=== PATIENT | male | born 2000 | race Caucasian/White ===

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

== ENCOUNTER 2019-02-02 17:16 | Emergency (ER) | payer MEDICAID ==
[2019-02-02 17:34] VITALS: O2SAT 96
[2019-02-02] MEDS ORDERED: Tylenol #3 Tablet PO ONE (17:51)
[2019-02-02] MEDS ORDERED: Tylenol #3 Tablet ONE (18:04)
[2019-02-02 18:35] VITALS: BP 134/83; PULSE 85
--- NOTE | 2019-02-02 18:41 | ERPHSYRPT ---
- History of Present Illness Time Seen by Provider: 02/02/19 17:35 Source: patient Exam Limitations: clinical condition Patient Subjective Stated Complaint: headache since 0010 today. states is intermittent and sometimes sharp. also had vomiting at 0010 today. states had [employer] at 1400 today. no further vomiting. Triage Nursing Assessment: ambulated to room per self. skin w/d, color normal, resp easy. states pain is barely a "1" at this time but does occasionally get worse. haley. a/o times three. Physician History: PATIENT WITH A HISTORY OF HEADACHES FOR 5-7 YEARS, 3-4 TIMES MONTHLY, ONSET OF 1AM TODAY ASSOCIATED WITH EMESIS EARLIER TODAY. HAS ASSOCIATED PHOTOPHOBIA. DENIES BLURRED VISION, FEVER, NECK STIFFNESS. RATES GENERALIZED HEADACHE PAIN SCALE 1-2/10. Timing/Duration: today Quality: throbbing Head Pain Location: global Severity of Pain-Max: moderate Severity of Pain-Current: mild Recent Head Trauma: frequent headaches, chronic headaches Modifying Factors: Improves With: exposure to light Associated Symptoms: nausea/vomiting (EARLIER TODAY) Previous symptoms: same symptoms as today Allergies/Adverse Reactions: No Known Drug Allergies Allergy (Verified 02/02/19 17:34) Hx Tetanus, Diphtheria Vaccination/Date Given: Yes Hx Influenza Vaccination/Date Given: Yes Hx Pneumococcal Vaccination/Date Given: No - Review of Systems Constitutional: No Fever, No Chills Eyes: No Symptoms Ears, Nose, & Throat: No Symptoms Respiratory: No Symptoms, No Cough, No Dyspnea Cardiac: No Chest Pain, No Edema, No Syncope Abdominal/Gastrointestinal: Nausea, Vomiting, No Abdominal Pain, No Diarrhea Genitourinary Symptoms: No Dysuria Musculoskeletal: No Back Pain, No Neck Pain Skin: No Rash Neurological: No Dizziness, No Focal Weakness, No Sensory Changes Psychological: No Symptoms Endocrine: No Symptoms All Other Systems: Reviewed and Negative - Past Medical History Pertinent Past Medical History: Yes Neurological History: No Pertinent History, Migraines ENT History: No Pertinent History Cardiac History: No Pertinent History Respiratory History: No Pertinent History Endocrine Medical History: No Pertinent History Musculoskeletal History: No Pertinent History GI Medical History: No Pertinent History History: No Pertinent History Psycho-Social History: No Pertinent History Male Reproductive Disorders: No Pertinent History Other Medical History: allergies - Past Surgical History Past Surgical History: Yes Neuro Surgical History: No Pertinent History Cardiac: No Pertinent History Respiratory: No Pertinent History Gastrointestinal: No Pertinent History Genitourinary: No Pertinent History Musculoskeletal: No Pertinent History Other Surgical History: cyst from mouth - Social History Smoking Status: Never smoker Exposure to second hand smoke: Yes Drug Use: none Patient Lives Alone: No - Nursing Vital Signs Nursing Vital Signs: Initial Vital Signs Temperature 98.6 F 02/02/19 17:24 Pulse Rate 83 02/02/19 17:24 Respiratory Rate 16 02/02/19 17:24 Blood Pressure 125/81 02/02/19 17:24 O2 Sat by Pulse Oximetry 96 02/02/19 17:24 Pain Scale Pain Intensity 5 - Physical Exam General Appearance: no apparent distress Eye Exam: PERRL/EOMI Ears, Nose, Throat Exam: normal ENT inspection, moist mucous membranes Neck Exam: normal inspection, supple, full range of motion, No meningismus Respiratory Exam: normal breath sounds, lungs clear Cardiovascular Exam: regular rate/rhythm, normal heart sounds Gastrointestinal/Abdominal Exam: soft, No tenderness, No distention Back Exam: normal inspection, normal range of motion Mental Status Exam: alert, oriented x 3, cooperative criminal justice faculty Exam: normal speech, PERRL, No facial droop Coordination/Gait Exam: normal cerebellar function Motor/Sensory Exam: no motor deficit, no sensory deficit DTR Exam: bicep (R): 2+, bicep (L): 2+, tricep (R): 2+, tricep (L): 2+, knee (R) : 2+, knee (L): 2+, ankle (R): 2+, ankle (L): 2+ Skin Exam: normal color, warm, dry, No rash SpO2 Interpretation: normal SpO2: 96 - CT Exams Head CT Interpretation: Tele-radiologist Report, No/Intracranial Hemorrhag Ordered Tests: Active Orders 24 hr Category Date Time Status HEAD WITHOUT CONTRAST [CT] Stat Exams 02/02/19 17:52 Taken Medication Summary Discontinued Medications Generic Name Dose Route Start Last Admin Trade Name Ric PRN Reason Stop Dose Admin Acetaminophen/Codeine Phosphate 1 tab 02/02/19 17:51 02/02/19 18:04 Tylenol #3 Tablet PO 02/02/19 17:52 1 tab STAT ONE Administration Acetaminophen/Codeine Phosphate Confirm 02/02/19 18:04 Tylenol #3 Tablet Administered 02/02/19 18:05 Dose 1 tab .ROUTE .[facility] ONE - Progress Progress Note: 02/02/19 18:35 ADMINISTERED TYLENOL #3 ORALLY - Departure Departure Disposition: Home Clinical Impression: ACUTE CEPHALGIA Condition: Stable Critical Care Time: No Referrals: MORGAN ORELLANA [Primary Care Provider] - Additional Instructions: BEGIN TORADOL 10MG EVERY 6 HOURS FOR PAIN NEEDED. ZOFRAN 4MG EVERY 6 HOURS FOR NAUSEA OR VOMITING. CONSULT YOUR PRIMARY CARE PROVIDER FOR FOLLOWUP. RETURN TO EMERGENCY ROOM FOR PERSISTENT SYMPTOMS. Prescriptions: Ketorolac Tromethamine [Toradol] 10 mg PO Q6HPRN PRN #20 tablet PRN Reason: Pain Ondansetron ODT 4 MG [Zofran Odt 4 mg] 4 mg PO Q6H PRN PRN #10 tab.rapdis PRN Reason: Nausea
--- NOTE | 2019-02-02 23:04 | XRAY ---
Indication: Headache. No known injury. Multiple contiguous axial images obtained through the head without contrast. Comparison: None Normal appearing brain parenchyma, ventricles, and bony calvarium. Visualized paranasal sinuses and mastoid air cells are clear. Impression: Normal CT head without contrast exam. Comment: Preliminary interpretation was made by [facility]. No discrepancy. CTDI 52.42
== END 2019-02-02 18:45 | disposition home or self-care (01) ==
LOC: ED 17:16
DX: R51 Headache (principal)
CPT/HCPCS: 70450; 99283; A9270-GY

== ENCOUNTER 2019-08-09 08:33 | Day surgery (SDC) | payer OTHER ==
--- NOTE | 2019-08-09 07:43 | HP ---
DATE OF SURGERY: 08/09/2019 ANTICIPATED PROCEDURE: Laparoscopic cholecystectomy. HISTORY OF PRESENT ILLNESS: The patient has symptomatic cholelithiasis, seen and examined. Procedure discussed in detail and wished to proceed. PAST MEDICAL HISTORY: ALLERGIES: NONE. MEDICATIONS: Omeprazole, Singulair, Cetirizine, Nasonex. PAST SURGICAL HISTORY: None. SOCIAL HISTORY: Negative. FAMILY HISTORY: Negative. REVIEW OF SYSTEMS: CVS: Negative. PULMONARY: Negative. PHYSICAL EXAMINATION: VITAL SIGNS: Normal. CHEST: Clear. COR: Regular. ABDOMEN: Satisfactory. IMPRESSION: Symptomatic cholelithiasis. PLAN: Laparoscopic cholecystectomy.
[~2019-08-09 08:33] MED LIST: Lactated Ringers 1,000 ML IV ONE; Lactated Ringers 1,000 ML IV SCH; MEFOXIN 2 GM PREMIX** 2 GM/50 ML ML IV ONE; MEFOXIN 2 GM PREMIX** 2 GM/50 ML ML IV SCH; Sensorcaine 0.25% 10 ML ONE
[2019-08-09] MEDS ORDERED: DIPRIVAN 200 MG/20 ML IV ONE (09:00)
[2019-08-09] MEDS ORDERED: Quelicin Fliptop 200 MG/10 ML ONE (09:00)
[2019-08-09] MEDS ORDERED: SUBLIMAZE 100 MCG/2 ML ONE ×2 (09:00→11:08)
[2019-08-09] MEDS ORDERED: Zemuron 100 MG/10 ML ONE (09:00)
[2019-08-09] MEDS ORDERED: TORAdol 30 mg Injection ONE (10:28)
[2019-08-09] MEDS ORDERED: Zofran 4 MG/2 ML VIAL ONE (10:28)
[2019-08-09] MEDS ORDERED: Decadron 4 MG INJ ONE (10:28)
[2019-08-09] MEDS ORDERED: BRIDION 200MG/2ML IV ONE (10:28)
[2019-08-09] MEDS ORDERED: DILAUDID 2 MG INJECTION ONE ×2 (11:01→11:16)
--- NOTE | 2019-08-09 11:11 | OP ---
SURGERY DATE/TIME: 08/09/2019 1020 PREOPERATIVE DIAGNOSIS: Symptomatic cholelithiasis. POSTOPERATIVE DIAGNOSIS: Symptomatic cholelithiasis. PROCEDURE: Laparoscopic cholecystectomy. SURGEON: Dr. Phelps. ANESTHESIA: General endotracheal. COMPLICATIONS: None. CONDITION: Stable. INDICATIONS: A patient with right upper quadrant pain, ultrasound positive, seen and examined. Procedure discussed in detail and wished to proceed. DESCRIPTION OF PROCEDURE AND FINDINGS: Taken to surgery. General anesthetic, routine prep and drape. Veress needle inserted right upper quadrant. Insufflating pressure 14. Four - 5's. Good visualization. Some inflammation. Cystic duct defined. Cystic artery defined. Cystic artery was small but cauterized, coagulated looked satisfactory. Cystic duct triply clipped. Posterior cystic artery higher up was clipped. Gallbladder rolled out of gallbladder fossa. The gallbladder delivered through the upper abdominal port. Hole closure device was used with 0 Vicryl. Field clean and dry. CO2 exsufflated. Skin closed with 4-0 Vicryl and Steri-Strips. The patient tolerated the procedure satisfactorily.
[2019-08-09 13:01] VITALS: O2SAT 98
[2019-08-09 13:20] VITALS: BP 132/84; PULSE 83
== END 2019-08-09 12:50 | disposition home or self-care (01) ==
LOC: SDC 08:33
PROVIDERS: ATTEND Surgery
DX: K80.20 Calculus of gallbladder without cholecystitis without obstruction (principal)
CPT/HCPCS: J0330; J0694; J1100; J1170; J1885; J2405; J2704; J3010

== ENCOUNTER 2019-09-06 10:39 | Emergency (ER) | payer OTHER ==
--- NOTE | 2019-09-06 10:56 | ERPHSYRPT ---
- History of Present Illness Time Seen by Provider: 09/06/19 10:45 Historian: patient, family Exam Limitations: no limitations Patient Subjective Stated Complaint: pt here for vomiting, he states he had gallbladder out a month ago for gall stones and he still is having bouts of vomiting. pt is a poor historian and wont give hx he lets hes family talk for him Triage Nursing Assessment: pt alert, resp easy, skin w/d/p. abd soft, he states abd pain from vomiting Physician History: 19 y/o white male with nkda, no meds, no marijuana or other illicit drug use, presents with chronic recurrent n/v despite cholecystectomy approx 1 month ago for cholelithiass. most recent episode began this am at 0500. not related to type of food ingested. no prior endoscopies. Timing/Duration: today Activities at Onset: none Quality: cramping (mild ruq) Severity of Pain-Max: mild Severity of Pain-Current: mild Modifying Factors: Improves With: vomiting Associated Symptoms: loss of appetite, nausea, vomiting, No diarrhea Previous symptoms: same symptoms as today Allergies/Adverse Reactions: trazodone Adverse Reaction (Severe, Verified 09/06/19 10:54) Headache Home Medications: Cetirizine HCl 10 mg PO DAILY 07/31/19 [History] Fluticasone Furoate [Flonase Sensimist] 5.9 ml NS DAILY PRN PRN 07/31/19 [ History] Montelukast Sodium 10 mg PO DAILY 07/31/19 [History] Omeprazole 20 mg PO DAILY 07/31/19 [History] Hx Tetanus, Diphtheria Vaccination/Date Given: No Hx Influenza Vaccination/Date Given: Yes Hx Pneumococcal Vaccination/Date Given: No Immunizations Up to Date: Yes - Review of Systems Constitutional: No Symptoms Eyes: No Symptoms Ears, Nose, & Throat: No Symptoms Respiratory: No Symptoms Cardiac: No Symptoms Abdominal/Gastrointestinal: Abdominal Pain, Nausea, Vomiting, No Diarrhea Genitourinary Symptoms: No Symptoms Musculoskeletal: No Symptoms Skin: No Symptoms Neurological: No Symptoms Psychological: No Symptoms Endocrine: No Symptoms Hematologic/Lymphatic: No Symptoms Immunological/Allergic: No Symptoms All Other Systems: Reviewed and Negative - Past Medical History Pertinent Past Medical History: Yes Neurological History: No Pertinent History, Migraines ENT History: No Pertinent History Cardiac History: No Pertinent History Respiratory History: No Pertinent History Endocrine Medical History: No Pertinent History Musculoskeletal History: No Pertinent History GI Medical History: No Pertinent History History: No Pertinent History Psycho-Social History: No Pertinent History Male Reproductive Disorders: No Pertinent History Other Medical History: allergies - Past Surgical History Past Surgical History: Yes Neuro Surgical History: No Pertinent History Cardiac: No Pertinent History Respiratory: No Pertinent History Gastrointestinal: No Pertinent History Genitourinary: No Pertinent History Musculoskeletal: No Pertinent History Other Surgical History: cyst from mouth - Social History Smoking Status: Never smoker Exposure to second hand smoke: No Drug Use: none Patient Lives Alone: No - Nursing Vital Signs Nursing Vital Signs: Initial Vital Signs Temperature 98.7 F 09/06/19 10:48 Pulse Rate 100 H 09/06/19 10:48 Respiratory Rate 18 09/06/19 10:48 Blood Pressure 112/83 09/06/19 10:48 O2 Sat by Pulse Oximetry 99 09/06/19 10:48 Pain Scale Pain Intensity 2 - Physical Exam General Appearance: mild distress, alert, anxiety Eye Exam: PERRL/EOMI Ears, Nose, Throat Exam: normal ENT inspection, moist mucous membranes Neck Exam: normal inspection, non-tender, supple, full range of motion Respiratory Exam: normal breath sounds, lungs clear, airway intact, No chest tenderness, No respiratory distress Cardiovascular Exam: regular rate/rhythm, normal heart sounds, normal peripheral pulses Gastrointestinal/Abdomen Exam: soft, normal bowel sounds, No tenderness Rectal Exam: not done Back Exam: normal inspection, normal range of motion, No CVA tenderness, No vertebral tenderness Extremity Exam: normal inspection, normal range of motion, pelvis stable Neurologic Exam: alert, oriented x 3, cooperative, training development specialist II-XII nml as tested, normal mood/affect, nml cerebellar function, nml station & gait Skin Exam: normal color, warm, dry Lymphatic Exam: No adenopathy SpO2 Interpretation: normal SpO2: 99 O2 Delivery: Room Air - Course Nursing assessment & vital signs reviewed: Yes Ordered Tests: Active Orders 24 hr Category Date Time Status IV Insertion STAT Care 09/06/19 10:58 Active AMYLASE Stat Lab 09/06/19 11:10 Completed CBC W DIFF Stat Lab 09/06/19 11:10 Completed CMP Stat Lab 09/06/19 11:10 Completed LIPASE Stat Lab 09/06/19 11:10 Completed UA W/RFX UR CULTURE Stat Lab 09/06/19 13:00 Completed Medication Summary Discontinued Medications Generic Name Dose Route Start Last Admin Trade Name Ric PRN Reason Stop Dose Admin Famotidine 40 mg 09/06/19 10:59 09/06/19 11:04 Pepcid 20 Mg Vial IV 09/06/19 11:00 40 mg STAT ONE Administration Famotidine Confirm 09/06/19 11:02 Pepcid 20 Mg Vial Administered 09/06/19 11:03 Dose 20 mg IV .STK-MED ONE Famotidine Confirm 09/06/19 11:05 Pepcid 20 Mg Vial Administered 09/06/19 11:06 Dose 20 mg IV .STK-MED ONE Sodium Chloride 1,000 mls @ 999 mls/hr 09/06/19 10:58 09/06/19 11:50 Sodium Chloride 0.9% 1000 Ml IV 09/06/19 11:58 Infused .Q1H1M STA Infusion Sodium Chloride Confirm 09/06/19 11:02 Sodium Chloride 0.9% 1000 Ml Administered 09/06/19 11:03 Dose 1,000 mls @ ud .ROUTE .STK-MED ONE Sodium Chloride 1,000 mls @ 999 mls/hr 09/06/19 11:40 09/06/19 13:09 Sodium Chloride 0.9% 1000 Ml IV 09/06/19 12:40 Infused .Q1H1M STA Infusion Sodium Chloride Confirm 09/06/19 11:47 Sodium Chloride 0.9% 1000 Ml Administered 09/06/19 11:48 Dose 1,000 mls @ ud .ROUTE .STK-MED ONE Ondansetron HCl 4 mg 09/06/19 10:58 09/06/19 11:04 Zofran 4 Mg/2 Ml Vial IV 09/06/19 10:59 4 mg STAT ONE Administration Ondansetron HCl Confirm 09/06/19 11:02 Zofran 4 Mg/2 Ml Vial Administered 09/06/19 11:03 Dose 4 mg .ROUTE .STK-MED ONE Lab/Rad Data: Laboratory Result Diagrams 09/06/19 11:10 09/06/19 11:10 Laboratory Results 09/06/19 09/06/19 09/06/19 Range/Units 13:00 11:10 11:10 WBC (4.0-10.5) K/mm3 RBC (4.1-5.6) M/mm3 Hgb (12.5-18.0) gm/dl Hct (42-50) % MCV (78-100) fl MCH (26-32) pg MCHC (32-36) g/dl RDW (11.5-14.0) % Plt Count (150-450) K/mm3 MPV (6-9.5) fl Gran % (36.0-66.0) % Eos # (Auto) (0-0.5) Absolute Lymphs (auto) (1.0-4.6) Absolute Monos (auto) (0.0-1.3) Lymphocytes % (24.0-44.0) % Monocytes % (0.0-12.0) % Eosinophils % (0.00-5.0) % Basophils % (0.0-0.4) % Absolute Granulocytes (1.4-6.9) Basophils # (0-0.4) Sodium 145 (137-145) mmol/L Potassium 3.8 (3.5-5.1) mmol/L Chloride 104 (98-107) mmol/L Carbon Dioxide 27 (22-30) mmol/L Anion Gap 18.0 H (5-15) MEQ/L BUN 16 (9-20) mg/dL Creatinine 0.73 (0.66-1.25) mg/dL Estimated GFR > 60.0 ML/MIN Glucose 127 H (74-106) mg/dL Calcium 9.8 (8.4-10.2) mg/dL Total Bilirubin 1.00 (0.2-1.3) mg/dL AST 35 (17-59) U/L ALT 41 (0-50) U/L Alkaline Phosphatase 89 (38-126) U/L Serum Total Protein 9.0 H (6.3-8.2) g/dL Albumin 5.0 (3.5-5.0) g/dL Amylase 71 (30-110) U/L Lipase 64 (23-300) U/L Urine Color YELLOW (YELLOW) Urine Appearance CLEAR (CLEAR) Urine pH 7.0 (5-6) Ur Specific [place] 1.018 (1.005-1.025) Urine Protein NEGATIVE (Negative) Urine Ketones TRACE (NEGATIVE) Urine Blood NEGATIVE (0-5) [place]/ul Urine Nitrite NEGATIVE (NEGATIVE) Urine Bilirubin NEGATIVE (NEGATIVE) Urine Urobilinogen 2 (0-1) mg/dL Ur Leukocyte Esterase NEGATIVE (NEGATIVE) Urine WBC (Auto) 0-2 (0-5) /HPF Urine RBC (Auto) NONE (0-2) /HPF U Epithel Cells (Auto) NONE (FEW) /HPF Urine Bacteria (Auto) NONE (NEGATIVE) /HPF Urine Mucus (Auto) SLIGHT (NEGATIVE) /HPF Urine Culture Reflexed NO (NO) Urine Glucose NEGATIVE (NEGATIVE) mg/dL Influenza Type A Ag NEGATIVE (NEGATIVE) Influenza Type B Ag NEGATIVE (NEGATIVE) RSV (PCR) NEGATIVE (Negative) Group A Strep Antibody NEGATIVE (NEGATIVE) 09/06/19 Range/Units 11:10 WBC 16.7 H (4.0-10.5) K/mm3 RBC 5.71 H (4.1-5.6) M/mm3 Hgb 17.4 (12.5-18.0) gm/dl Hct 49.9 (42-50) % MCV 87.4 (78-100) fl MCH 30.4 (26-32) pg MCHC 34.9 (32-36) g/dl RDW 13.3 (11.5-14.0) % Plt Count 274 (150-450) K/mm3 MPV 9.3 (6-9.5) fl Gran % 89.2 H (36.0-66.0) % Eos # (Auto) 0.02 (0-0.5) Absolute Lymphs (auto) 0.70 L (1.0-4.6) Absolute Monos (auto) 1.08 (0.0-1.3) Lymphocytes % 4.2 L (24.0-44.0) % Monocytes % 6.5 (0.0-12.0) % Eosinophils % 0.1 (0.00-5.0) % Basophils % 0.0 (0.0-0.4) % Absolute Granulocytes 14.91 H (1.4-6.9) Basophils # 0 (0-0.4) Sodium (137-145) mmol/L Potassium (3.5-5.1) mmol/L Chloride (98-107) mmol/L Carbon Dioxide (22-30) mmol/L Anion Gap (5-15) MEQ/L BUN (9-20) mg/dL Creatinine (0.66-1.25) mg/dL Estimated GFR ML/MIN Glucose (74-106) mg/dL Calcium (8.4-10.2) mg/dL Total Bilirubin (0.2-1.3) mg/dL AST (17-59) U/L ALT (0-50) U/L Alkaline Phosphatase (38-126) U/L Serum Total Protein (6.3-8.2) g/dL Albumin (3.5-5.0) g/dL Amylase (30-110) U/L Lipase (23-300) U/L Urine Color (YELLOW) Urine Appearance (CLEAR) Urine pH (5-6) Ur Specific [place] (1.005-1.025) Urine Protein (Negative) Urine Ketones (NEGATIVE) Urine Blood (0-5) Virgilio/ul Urine Nitrite (NEGATIVE) Urine Bilirubin (NEGATIVE) Urine Urobilinogen (0-1) mg/dL Ur Leukocyte Esterase (NEGATIVE) Urine WBC (Auto) (0-5) /HPF Urine RBC (Auto) (0-2) /HPF U Epithel Cells (Auto) (FEW) /HPF Urine Bacteria (Auto) (NEGATIVE) /HPF Urine Mucus (Auto) (NEGATIVE) /HPF Urine Culture Reflexed (NO) Urine Glucose (NEGATIVE) mg/dL Influenza Type A Ag (NEGATIVE) Influenza Type B Ag (NEGATIVE) RSV (PCR) (Negative) Group A Strep Antibody (NEGATIVE) - Progress Progress: improved, re-examined Progress Note: 09/06/19 14:32 pt libra pos and feels better Counseled pt/family regarding: lab results, diagnosis, need for follow-up - Departure Departure Disposition: Home Clinical Impression: Vomiting Condition: Stable Critical Care Time: No Referrals: MORGAN ORELLANA [Primary Care Provider] - Additional Instructions: avoid fatty, greasy spicy foods. drink plenty of clear liquids before advancing diet. follow up with order make up clerk for further management Prescriptions: Ondansetron HCl [Zofran] 4 mg PO TID PRN #10 tablet PRN Reason: Nausea/Vomiting Ranitidine HCl [Zantac] 150 mg PO BID 5 Days #10 tablet
[2019-09-06] MEDS ORDERED: Zofran 4 MG/2 ML VIAL IV ONE (10:58)
[2019-09-06] MEDS ORDERED: Sodium Chloride 0.9% 1000 ML 1,000 ML IV STA ×2 (10:58→11:40)
[2019-09-06] MEDS ORDERED: Pepcid 20 MG VIAL IV ONE ×3 (10:59→11:05)
[2019-09-06] MEDS ORDERED: Zofran 4 MG/2 ML VIAL ONE (11:02)
[2019-09-06] MEDS ORDERED: Sodium Chloride 0.9% 1000 ML 1,000 ML ONE ×2 (11:02→11:47)
[2019-09-06 11:13] LABS: Absolute Neutrophil Ct (ANC) 14.91 (1.4-6.9); Basophil (Absolute #) 0 (0-0.4); Eosinophil % 0.1 % (0.00-5.0); Eosinophil (Absolute #) 0.02 (0-0.5); Hematocrit 49.9 % (42-50); Hemoglobin 17.4 gm/dl (12.5-18.0); Lymphocytes % 4.2 % (24.0-44.0); Mean Cell Volume 87.4 fl (78-100); Mean Corpuscular Hgb Concent. 34.9 g/dl (32-36); Mean Platelet Volume 9.3 fl (6-9.5); Monocyte (Absolute #) 1.08 (0.0-1.3); Monocytes % 6.5 % (0.0-12.0); Neutrophil % 89.2 % (36.0-66.0); Platelet Count 274 K/mm3 (150-450); Red Blood Count 5.71 M/mm3 (4.1-5.6); Red Cell Distribution Width 13.3 % (11.5-14.0); White Blood Count 16.7 K/mm3 (4.0-10.5)
[2019-09-06 11:16] LABS: Mean Corpuscular Hemoglobin 30.4 pg (26-32)
[2019-09-06 11:23] LABS: ALKALINE PHOSPHATASE 89 U/L (38-126); AMYLASE 71 U/L (30-110); BLOOD UREA NITROGEN 16 mg/dL (9-20); CHLORIDE 104 mmol/L (98-107); Calcium 9.8 mg/dL (8.4-10.2); Carbon Dioxide 27 mmol/L (22-30); Creatinine 1 0.73 mg/dL (0.66-1.25); Glucose 127 mg/dL (74-106); LIPASE 64 U/L (23-300); Potassium 3.8 mmol/L (3.5-5.1); SGOT/AST 35 U/L (17-59); SGPT/ALT 41 U/L (0-50); SODIUM 145 mmol/L (137-145)
[2019-09-06 11:45] LABS: Group A Strep NEGATIVE (NEGATIVE); INFLUENZA A NEGATIVE (NEGATIVE); INFLUENZA B NEGATIVE (NEGATIVE); RESPIRATORY SYNCTIAL VIRUS NEGATIVE (Negative)
[2019-09-06 13:21] LABS: Appearance CLEAR (CLEAR); Bilirubin NEGATIVE (NEGATIVE); Blood NEGATIVE Ery/ul (0-5); Glucose NEGATIVE (NEGATIVE); Ketones TRACE (NEGATIVE); Leukocyte Esterase NEGATIVE (NEGATIVE); Mucus SLIGHT /HPF (NEGATIVE); Nitrite NEGATIVE (NEGATIVE); Protein,Urine Dip NEGATIVE (Negative); Specific Gravity 1.018 (1.005-1.025); Urobilinogen 2 mg/dL (0-1); WBC 0-2 /HPF (0-5)
[2019-09-06 14:19] VITALS: BP 121/80; PULSE 97
[2019-09-06 14:34] VITALS: O2SAT 99
== END 2019-09-06 14:58 | disposition home or self-care (01) ==
LOC: ED 10:39
DX: R11.2 Nausea with vomiting, unspecified (principal); R63.0 Anorexia
CPT/HCPCS: 36000; 36415; 80053; 81001; 82150; 83690; 85025; 87631; 87651; 96360; 96361; 96374; 96375; 99284; J2405

== ENCOUNTER 2020-12-24 20:36 | Emergency (ER) | payer OTHER ==
--- NOTE | 2020-12-24 20:39 | ERPHSYRPT ---
- History of Present Illness Time Seen by Provider: 12/24/20 20:38 Source: patient Exam Limitations: no limitations Physician History: This is a 20-year-old white male who has had a history of recurrent right ear infections and presents with right ear pain that began yesterday. Patient has tried some Tylenol, ibuprofen and eardrops. However, the right ear pain is still present. He has had no fever. He has no cough. He has no myalgias or arthralgias. He said no drainage from the right ear. Patient has no known drug allergies other than the trazodone. Timing/Duration: gradual onset Severity: mild ENT Location: ear (R) Prearrival Treatment: over the counter meds Modifying Factors: Improves With: nothing Associated Symptoms: ear pain (R) Allergies/Adverse Reactions: trazodone Adverse Reaction (Severe, Verified 12/24/20 20:51) Headache Home Medications: Cetirizine HCl 10 mg PO DAILY 07/31/19 [History] Fluticasone Furoate [Flonase Sensimist] 5.9 ml NS DAILY PRN PRN 07/31/19 [History] Omeprazole 20 mg PO DAILY 07/31/19 [History] Ranitidine HCl [Zantac] 150 mg PO 12/24/20 [History] Hx Tetanus, Diphtheria Vaccination/Date Given: No Hx Influenza Vaccination/Date Given: Yes Hx Pneumococcal Vaccination/Date Given: No Travel Risk - International Travel Have you traveled outside of the country in past 3 weeks: No - Coronavirus Screening Are you exhibiting any of the following symptoms?: No Close contact with a COVID-19 positive Pt in past 14-21 Days: No - Review of Systems Constitutional: No Symptoms Eyes: No Symptoms Ears, Nose, & Throat: Ear Pain (Right) Respiratory: No Symptoms Cardiac: No Symptoms Abdominal/Gastrointestinal: No Symptoms Genitourinary Symptoms: No Symptoms Musculoskeletal: No Symptoms Skin: No Symptoms Neurological: No Symptoms Psychological: No Symptoms Endocrine: No Symptoms Hematologic/Lymphatic: No Symptoms Immunological/Allergic: No Symptoms All Other Systems: Reviewed and Negative - Past Medical History Pertinent Past Medical History: Yes Neurological History: No Pertinent History, Migraines ENT History: No Pertinent History Cardiac History: No Pertinent History Respiratory History: No Pertinent History Endocrine Medical History: No Pertinent History Musculoskeletal History: No Pertinent History GI Medical History: No Pertinent History History: No Pertinent History Psycho-Social History: No Pertinent History Male Reproductive Disorders: No Pertinent History Other Medical History: allergies - Past Surgical History Past Surgical History: Yes Neuro Surgical History: No Pertinent History Cardiac: No Pertinent History Respiratory: No Pertinent History Gastrointestinal: No Pertinent History Genitourinary: No Pertinent History Musculoskeletal: No Pertinent History Other Surgical History: cyst from mouth - Social History Smoking Status: Never smoker Exposure to second hand smoke: No Drug Use: none Patient Lives Alone: No - Nursing Vital Signs Nursing Vital Signs: Initial Vital Signs Temperature 98.3 F 12/24/20 20:40 Pulse Rate 93 H 12/24/20 20:40 Respiratory Rate 18 12/24/20 20:40 Blood Pressure 129/97 12/24/20 20:40 O2 Sat by Pulse Oximetry 97 12/24/20 20:40 Pain Scale Pain Intensity 10 - Physical Exam General Appearance: no apparent distress, alert, anxiety Eye Exam: bilateral eye: normal inspection, PERRL, EOMI Ear Exam: left ear: auricle normal, canal normal, TM normal, swelling, tenderness, TM red Nasal Exam: normal inspection Throat Exam: normal, pharynx normal Neck Exam: normal inspection, non-tender, supple, full range of motion, trachea midline Cardiovascular/Respiratory Exam: chest non-tender, no respiratory distress Abdominal Exam: non-tender Neurologic Exam: alert, oriented x 3, cooperative, completions engineer II-XII nml as tested, normal mood/affect, nml cerebellar function, nml station & gait Skin Exam: normal color, warm, dry SpO2 Interpretation: normal O2 Delivery: Room Air - Course Nursing assessment & vital signs reviewed: Yes Ordered Tests: Medication Summary Generic Name Dose Route Start Last Admin Trade Name Freq PRN Reason Stop Dose Admin Prednisone 20 mg 12/25/20 20:50 Deltasone 20 Mg PO 12/25/20 20:51 STAT ONE Discontinued Medications Generic Name Dose Route Start Last Admin Trade Name Freq PRN Reason Stop Dose Admin Hydrocodone Bitart/Acetaminophen 1 tab 12/24/20 20:49 [place] 5/325 Mg PO 12/24/20 20:50 STAT ONE Cephalexin HCl 500 mg 12/24/20 20:49 Keflex 500 Mg PO 12/24/20 20:50 STAT ONE - Progress Progress: unchanged Counseled pt/family regarding: diagnosis, need for follow-up - Departure Departure Disposition: Home Clinical Impression: Right otitis media Condition: Stable Critical Care Time: No Referrals: MORGAN CLEMENTE [Primary Care Provider] - Additional Instructions: Use Tylenol and ibuprofen for pain control. Take your medication as prescribed. Follow-up with your primary care physician for persistent symptoms. Prescriptions: Prednisone 10 mg [Deltasone 10 mg] 10 mg PO TID #12 tablet Cephalexin Mh 500 mg [Keflex 500 mg] 500 mg PO TID #21 capsule
[2020-12-24] MEDS ORDERED: NORCO 5/325 MG PO ONE (20:49)
[2020-12-24] MEDS ORDERED: KEFLEX 500 MG PO ONE (20:49)
[2020-12-24 20:50] VITALS: BP 129/97
[2020-12-24] MEDS ORDERED: DELTASONE 20 MG ONE (20:53)
[2020-12-24] MEDS ORDERED: NORCO 5/325 MG ONE (20:53)
[2020-12-24] MEDS ORDERED: KEFLEX 500 MG ONE (20:53)
[2020-12-24 21:10] VITALS: PULSE 88; O2SAT 99
[2020-12-25] MEDS ORDERED: DELTASONE 20 MG PO ONE (20:50)
== END 2020-12-24 21:11 | disposition home or self-care (01) ==
LOC: ED 20:36
DX: H66.91 Otitis media, unspecified, right ear (principal)
CPT/HCPCS: 99283; A9270-GY

== ENCOUNTER 2021-08-28 13:34 | Emergency (ER) | payer OTHER ==
--- NOTE | 2021-08-28 13:50 | ERPHSYRPT ---
- History of Present Illness Time Seen by Provider: 08/28/21 13:45 Source: patient Exam Limitations: no limitations Physician History: Patient is a 21-year-old male who presents with a 2-day complaint of severe left earache sore throat and vomiting x2. There has been no fever. Generally healthy. Timing/Duration: abrupt onset Severity: moderate ENT Location: ear (L), throat Prearrival Treatment: no prearrival treatment Modifying Factors: Improves With: coughing Associated Symptoms: ear pain (L), sore throat, difficulty swallowing Allergies/Adverse Reactions: trazodone Adverse Reaction (Severe, Verified 06/01/21 14:09) Headache Home Medications: Cetirizine HCl 10 mg PO DAILY 07/31/19 [History] Fluticasone Furoate [Flonase Sensimist] 5.9 ml NS DAILY PRN PRN 07/31/19 [History] Omeprazole 20 mg PO DAILY 07/31/19 [History] Ranitidine HCl [Zantac] 150 mg PO 12/24/20 [History] Hx Tetanus, Diphtheria Vaccination/Date Given: No Hx Influenza Vaccination/Date Given: Yes Hx Pneumococcal Vaccination/Date Given: No - Review of Systems Constitutional: No Fever, No Chills Eyes: No Symptoms Ears, Nose, & Throat: Ear Pain, Sinus Drainage, Throat Pain, Throat Swelling, Painful Swallowing Respiratory: Cough, No Dyspnea Cardiac: No Chest Pain, No Edema, No Syncope Abdominal/Gastrointestinal: No Abdominal Pain, No Nausea, No Vomiting, No Diarrhea Genitourinary Symptoms: No Dysuria Musculoskeletal: No Back Pain, No Neck Pain Skin: No Rash Neurological: No Dizziness, No Focal Weakness, No Sensory Changes Psychological: No Symptoms Endocrine: No Symptoms All Other Systems: Reviewed and Negative - Past Medical History Pertinent Past Medical History: Yes Neurological History: No Pertinent History, Migraines ENT History: No Pertinent History Cardiac History: No Pertinent History Respiratory History: No Pertinent History Endocrine Medical History: No Pertinent History Musculoskeletal History: No Pertinent History GI Medical History: No Pertinent History History: No Pertinent History Psycho-Social History: No Pertinent History Male Reproductive Disorders: No Pertinent History Other Medical History: allergies - Past Surgical History Past Surgical History: Yes Neuro Surgical History: No Pertinent History Cardiac: No Pertinent History Respiratory: No Pertinent History Gastrointestinal: No Pertinent History Genitourinary: No Pertinent History Musculoskeletal: No Pertinent History Other Surgical History: cyst from mouth - Social History Smoking Status: Never smoker Exposure to second hand smoke: No Drug Use: none Patient Lives Alone: No - Physical Exam General Appearance: mild distress, alert Eye Exam: bilateral eye: PERRL, EOMI Ear Exam: right ear: auricle normal, canal normal, TM normal, left ear: erythema, TM red, TM bulging Nasal Exam: discharge Throat Exam: moist mucus membranes, pharynx swelling, pharynx tenderness, No tonsillar exudate Neck Exam: supple Cardiovascular/Respiratory Exam: normal breath sounds, regular rate/rhythm Abdominal Exam: non-tender, soft Neurologic Exam: alert, oriented x 3, sensation nml, No motor deficits Skin Exam: normal color, warm, dry - Course Nursing assessment & vital signs reviewed: Yes - Progress Progress: unchanged - Departure Departure Disposition: Home Clinical Impression: Left otitis media, Pharyngitis Condition: Stable Critical Care Time: No Referrals: MORGAN CHAMORRO [Primary Care Provider] - Follow up/PCP as directed Instructions: Serous Otitis Media (DC) Prescriptions: Cephalexin Mh 500 mg [Keflex 500 mg] 500 mg PO QID #40 cap
== END 2021-08-28 14:03 | disposition home or self-care (01) ==
LOC: ED 13:34
DX: H66.92 Otitis media, unspecified, left ear (principal); J02.9 Acute pharyngitis, unspecified
CPT/HCPCS: 99283

== ENCOUNTER 2022-01-27 18:13 | Emergency (ER) | payer OTHER ==
[2022-01-27] MEDS ORDERED: Rocephin 1000 MG INJ IM ONE (18:44)
--- NOTE | 2022-01-27 18:49 | ERPHSYRPT ---
- History of Present Illness Time Seen by Provider: 01/27/22 18:30 Source: patient Exam Limitations: no limitations Patient Subjective Stated Complaint: right earache for about a week Triage Nursing Assessment: Pt was brought to the ER by his mother, mckenzie stein, rates right ear pain as 6/10, denies any other problems, doesn't appear to be in any distress Physician History: This is a 22-year-old white male has a history of recurrent ear infections with the right side being worse than the left. Patient has no known drug allergies except for trazodone. Patient states that this right-sided ear pain began approximately 1 week ago. It is not let up. He feels as though he needs some antibiotics. Patient has not had a fever. He has no nausea vomiting diarrhea. He has no cough. He is not short of breath. Timing/Duration: gradual onset, weeks (1) Severity: mild ENT Location: ear (R) (To moderate) Prearrival Treatment: no prearrival treatment Associated Symptoms: ear pain (R), No cough, No fever, No dizziness, No ear drainage, No hearing loss Allergies/Adverse Reactions: trazodone Adverse Reaction (Severe, Verified 01/27/22 18:24) Headache Home Medications: Cetirizine HCl 10 mg PO DAILY 07/31/19 [History] raNITIdine HCL [Zantac] 150 mg PO DAILY 12/24/20 [History] Hx Tetanus, Diphtheria Vaccination/Date Given: No Hx Influenza Vaccination/Date Given: Yes Hx Pneumococcal Vaccination/Date Given: No Travel Risk - International Travel Have you traveled outside of the country in past 3 weeks: No - Coronavirus Screening Are you exhibiting any of the following symptoms?: No Close contact with a COVID-19 positive Pt in past 14-21 Days: No - Vaccine Status Have you recieved a Covid-19 vaccination: Yes Lineman: Moderna - Vaccination Dates Date of 2cond Vaccination (if applicable): unknown - Review of Systems Constitutional: No Symptoms Eyes: No Symptoms Ears, Nose, & Throat: Ear Pain (Right side) Respiratory: No Symptoms Cardiac: No Symptoms Abdominal/Gastrointestinal: No Symptoms Genitourinary Symptoms: No Symptoms Musculoskeletal: No Symptoms Skin: No Symptoms Neurological: No Symptoms Psychological: No Symptoms Endocrine: No Symptoms Hematologic/Lymphatic: No Symptoms Immunological/Allergic: No Symptoms All Other Systems: Reviewed and Negative - Past Medical History Pertinent Past Medical History: Yes Neurological History: No Pertinent History, Migraines ENT History: No Pertinent History Cardiac History: No Pertinent History Respiratory History: No Pertinent History Endocrine Medical History: No Pertinent History Musculoskeletal History: No Pertinent History GI Medical History: No Pertinent History History: No Pertinent History Psycho-Social History: No Pertinent History Male Reproductive Disorders: No Pertinent History Other Medical History: allergies - Past Surgical History Past Surgical History: Yes Neuro Surgical History: No Pertinent History Cardiac: No Pertinent History Respiratory: No Pertinent History Gastrointestinal: No Pertinent History Genitourinary: No Pertinent History Musculoskeletal: No Pertinent History Male Surgical History: No Pertinent History Other Surgical History: cyst from mouth - Social History Smoking Status: Never smoker Exposure to second hand smoke: Yes Drug Use: none Patient Lives Alone: No - Nursing Vital Signs Nursing Vital Signs: Initial Vital Signs Temperature 97.2 F 01/27/22 18:17 Pulse Rate 94 H 01/27/22 18:17 Blood Pressure 124/98 01/27/22 18:17 O2 Sat by Pulse Oximetry 100 01/27/22 18:17 Pain Scale Pain Intensity 6 - Physical Exam General Appearance: no apparent distress, alert, anxiety Eye Exam: bilateral eye: normal inspection, PERRL, EOMI Ear Exam: right ear: swelling, tenderness, TM red, left ear: canal normal, bilateral ear: auricle normal Nasal Exam: normal inspection Throat Exam: normal, pharynx normal, No dental tenderness Neck Exam: normal inspection, non-tender, supple, full range of motion Cardiovascular/Respiratory Exam: chest non-tender, no respiratory distress Neurologic Exam: alert, oriented x 3, cooperative, service delivery supervisor II-XII nml as tested, normal mood/affect, nml cerebellar function, nml station & gait, sensation nml Skin Exam: normal color, warm, dry SpO2 Interpretation: normal SpO2: 100 O2 Delivery: Room Air - Course Nursing assessment & vital signs reviewed: Yes - Progress Progress: unchanged Counseled pt/family regarding: diagnosis, need for follow-up - Departure Departure Disposition: Home Clinical Impression: Right otitis media Condition: Stable Critical Care Time: No Referrals: MORGAN CHAMORRO [Primary Care Provider] - Follow up/PCP as directed Additional Instructions: Use Tylenol ibuprofen for pain and fever control. Take your medication as prescribed. Follow-up with your primary provider for further evaluation and management of persistent symptoms. Prescriptions: Prednisone 10 mg [Deltasone 10 mg] 10 mg PO TID #6 tablet Azithromycin 250 mg [Zithromax 250 MG TABLET] 250 mg PO ZPACK #6 tablet
[2022-01-27] MEDS ORDERED: Rocephin 1000 MG INJ ONE (19:01)
[2022-01-27] MEDS ORDERED: XYLOCAINE 2% HCL 20 ML MDV ONE (19:01)
[2022-01-27 19:16] VITALS: BP 149/80; PULSE 86; O2SAT 98
== END 2022-01-27 19:18 | disposition home or self-care (01) ==
LOC: ED 18:13
DX: H66.91 Otitis media, unspecified, right ear (principal); H92.01 Otalgia, right ear; Z79.52 Long term (current) use of systemic steroids
CPT/HCPCS: 96372; 99283; J0696

== ENCOUNTER 2022-02-05 21:00 | Emergency (ER) | payer OTHER ==
[2022-02-05] MEDS ORDERED: XYLOCAINE 1% HCL 20 ML MDV IJ ONE (21:01)
[2022-02-05 21:18] VITALS: O2SAT 97
[2022-02-05] MEDS ORDERED: Rocephin 1000 MG INJ IM ONE (21:33)
[2022-02-05] MEDS ORDERED: Rocephin 1000 MG INJ ONE (21:34)
--- NOTE | 2022-02-05 21:39 | ERPHSYRPT ---
- History of Present Illness Source: patient Exam Limitations: no limitations Patient Subjective Stated Complaint: pt states he has continued to have pain in his ear after finishing his antibiotic Triage Nursing Assessment: pt alert and oriented. answers questions approp. pt ambulatory with steady gait noted. respiraitons nonlabored. skin pink warm an ddry. no drainage or redness to rt external ear canal noted. Physician History: 22 yo wm w R otalgia x 2wks. Pt just finished Zithromax but still has pain. He denies cough/coryza/ST/Fever/Trauma. Timing/Duration: weeks (2 wks) ENT Location: ear (R) Prearrival Treatment: prescription meds (Zpak) Modifying Factors: Improves With: nothing Associated Symptoms: denies symptoms, ear pain (R) Allergies/Adverse Reactions: trazodone Adverse Reaction (Severe, Verified 02/05/22 21:19) Headache Home Medications: Cetirizine HCl 10 mg PO DAILY 07/31/19 [History] raNITIdine HCL [Zantac] 150 mg PO DAILY 12/24/20 [History] Hx Tetanus, Diphtheria Vaccination/Date Given: No Hx Influenza Vaccination/Date Given: No Hx Pneumococcal Vaccination/Date Given: No Travel Risk - International Travel Have you traveled outside of the country in past 3 weeks: No - Coronavirus Screening Are you exhibiting any of the following symptoms?: No Close contact with a COVID-19 positive Pt in past 14-21 Days: No - Vaccine Status Have you recieved a Covid-19 vaccination: Yes 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: Moderna - Vaccination Dates Date of 2cond Vaccination (if applicable): 2020 - Review of Systems Constitutional: No Symptoms Eyes: No Symptoms Ears, Nose, & Throat: No Symptoms, Ear Pain Respiratory: No Symptoms Cardiac: No Symptoms Abdominal/Gastrointestinal: No Symptoms Genitourinary Symptoms: No Symptoms Musculoskeletal: No Symptoms Skin: No Symptoms Neurological: No Symptoms Psychological: No Symptoms Endocrine: No Symptoms Hematologic/Lymphatic: No Symptoms Immunological/Allergic: No Symptoms - Past Medical History Pertinent Past Medical History: Yes Neurological History: No Pertinent History, Migraines ENT History: No Pertinent History Cardiac History: No Pertinent History Respiratory History: No Pertinent History Endocrine Medical History: No Pertinent History Musculoskeletal History: No Pertinent History GI Medical History: No Pertinent History History: No Pertinent History Psycho-Social History: No Pertinent History Male Reproductive Disorders: No Pertinent History Other Medical History: allergies - Past Surgical History Past Surgical History: Yes Neuro Surgical History: No Pertinent History Cardiac: No Pertinent History Respiratory: No Pertinent History Gastrointestinal: No Pertinent History Genitourinary: No Pertinent History Musculoskeletal: No Pertinent History Male Surgical History: No Pertinent History Other Surgical History: cyst from mouth - Social History Smoking Status: Never smoker Exposure to second hand smoke: Yes Drug Use: none Patient Lives Alone: No Significant Family History: no pertinent family hx - Nursing Vital Signs Nursing Vital Signs: Initial Vital Signs Temperature 89 F 02/05/22 21:10 Pulse Rate 91 H 02/05/22 21:10 Respiratory Rate 16 02/05/22 21:10 Blood Pressure 145/89 02/05/22 21:10 O2 Sat by Pulse Oximetry 97 02/05/22 21:10 Pain Scale Pain Intensity 2 Hypertensive - Physical Exam General Appearance: no apparent distress Eye Exam: bilateral eye: normal inspection, PERRL, EOMI Ear Exam: right ear: TM red, left ear: auricle normal, canal normal, TM normal Nasal Exam: normal inspection Throat Exam: normal, pharynx normal Neck Exam: normal inspection, non-tender, supple, full range of motion, trachea midline, Brudzinski's sign, No JVD, No limited range of motion, No lymphadenopathy (R), No lymphadenopathy (L) Cardiovascular/Respiratory Exam: normal breath sounds, regular rate/rhythm, heart sounds normal Abdominal Exam: non-tender, soft, no organomegaly Neurologic Exam: alert, oriented x 3, cooperative, c unix developer II-XII nml as tested, normal mood/affect, nml cerebellar function, nml station & gait, sensation nml, No motor deficits, No sensory deficit Skin Exam: normal color, warm, dry, No rash SpO2 Interpretation: normal SpO2: 97 O2 Delivery: Room Air - Course Nursing assessment & vital signs reviewed: Yes Ordered Tests: Medication Summary Discontinued Medications Generic Name Dose Route Start Last Admin Trade Name Remigioq PRN Reason Stop Dose Admin Ceftriaxone Sodium 1,000 mg 02/05/22 21:33 02/05/22 21:41 Ceftriaxone Sodium 1000 Mg Inj Vial IM 02/05/22 21:34 1,000 mg STAT ONE Administration Ceftriaxone Sodium Confirm 02/05/22 21:34 Ceftriaxone Sodium 1000 Mg Inj Vial Administered 02/05/22 21:35 Dose 1,000 mg .ROUTE .STK-MED ONE - Progress Progress: improved Progress Note: 02/05/22 21:37 1gm IM Rocephin Pt refused all pain meds Counseled pt/family regarding: diagnosis, need for follow-up - Departure Departure Disposition: Home Clinical Impression: Otitis media Condition: Stable Critical Care Time: No Referrals: MORGAN CAHMORRO [Primary Care Provider] - Follow up/PCP as directed Instructions: Ear Infections (Otitis Media) in Children (DC) Additional Instructions: Follow up with your family MD next week Start Augmentin in AM Motrin/Tylenol for pain Return to ER as needed Prescriptions: Amox Tr/Potass Clav. 875 mg [Augmentin 875-125 Tablet] 875 mg PO BID #20 tablet
[2022-02-05 21:49] VITALS: BP 135/83; PULSE 78
== END 2022-02-05 21:56 | disposition home or self-care (01) ==
LOC: ED 21:00
DX: H66.91 Otitis media, unspecified, right ear (principal); H92.01 Otalgia, right ear
CPT/HCPCS: 96372; 99283; J0696

== ENCOUNTER 2022-05-14 14:47 | Emergency (ER) | payer OTHER ==
--- NOTE | 2022-05-14 14:54 | ERPHSYRPT ---
- History of Present Illness Time Seen by Provider: 05/14/22 14:54 Source: patient Exam Limitations: no limitations Physician History: This is a 22-year-old white male who has a history of recurrent ear infections. Primarily on the right but they have been on the left side in the past. Patient's last visit was in January 2022 and he was placed on Augmentin which seemed to work well for him. Patient cannot see his primary care physician until May 2022 later in the month. Patient notices that there is decreased hearing in the right ear compared to a year ago. Timing/Duration: gradual onset ENT Location: ear (R) Prearrival Treatment: no prearrival treatment Modifying Factors: Improves With: nothing Associated Symptoms: ear pain (R) (Right ear), change in hearing Allergies/Adverse Reactions: trazodone Adverse Reaction (Severe, Verified 02/05/22 21:19) Headache Home Medications: Cetirizine HCl 10 mg PO DAILY 07/31/19 [History] raNITIdine HCL [Zantac] 150 mg PO DAILY 12/24/20 [History] Hx Tetanus, Diphtheria Vaccination/Date Given: No Hx Influenza Vaccination/Date Given: No Hx Pneumococcal Vaccination/Date Given: No Travel Risk - International Travel Have you traveled outside of the country in past 3 weeks: No - Coronavirus Screening Are you exhibiting any of the following symptoms?: No Close contact with a COVID-19 positive Pt in past 14-21 Days: No - Vaccine Status Have you recieved a Covid-19 vaccination: Yes 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: Moderna - Vaccination Dates Date of 2cond Vaccination (if applicable): 2020 - Review of Systems Constitutional: No Symptoms Eyes: No Symptoms Ears, Nose, & Throat: Ear Pain Respiratory: No Symptoms (Right) Cardiac: No Symptoms Abdominal/Gastrointestinal: No Symptoms Genitourinary Symptoms: No Symptoms Musculoskeletal: No Symptoms Skin: No Symptoms Neurological: No Symptoms Psychological: No Symptoms Endocrine: No Symptoms Hematologic/Lymphatic: No Symptoms Immunological/Allergic: No Symptoms - Past Medical History Pertinent Past Medical History: Yes Neurological History: No Pertinent History, Migraines ENT History: No Pertinent History Cardiac History: No Pertinent History Respiratory History: No Pertinent History Endocrine Medical History: No Pertinent History Musculoskeletal History: No Pertinent History GI Medical History: No Pertinent History History: No Pertinent History Psycho-Social History: No Pertinent History Male Reproductive Disorders: No Pertinent History Other Medical History: allergies - Past Surgical History Past Surgical History: Yes Neuro Surgical History: No Pertinent History Cardiac: No Pertinent History Respiratory: No Pertinent History Gastrointestinal: No Pertinent History Genitourinary: No Pertinent History Musculoskeletal: No Pertinent History Male Surgical History: No Pertinent History Other Surgical History: cyst from mouth - Social History Smoking Status: Never smoker Exposure to second hand smoke: Yes Drug Use: none Patient Lives Alone: No Significant Family History: no pertinent family hx - Nursing Vital Signs Nursing Vital Signs: Initial Vital Signs Temperature 97.2 F 05/14/22 14:52 Pulse Rate 83 05/14/22 14:52 Respiratory Rate 20 05/14/22 14:52 Blood Pressure 158/88 05/14/22 14:52 O2 Sat by Pulse Oximetry 98 05/14/22 14:52 Pain Scale Pain Intensity 5 - Physical Exam General Appearance: no apparent distress, alert, anxiety Eye Exam: bilateral eye: normal inspection, PERRL, EOMI, abnormal EOM Ear Exam: right ear: TM red, left ear: other (Tympanic membrane on the left side appears to be scarred.), bilateral ear: auricle normal, canal normal Nasal Exam: normal inspection Throat Exam: normal, pharynx normal, moist mucus membranes, No dental tenderness Neck Exam: normal inspection, non-tender, supple, full range of motion, trachea midline Cardiovascular/Respiratory Exam: chest non-tender, no respiratory distress Abdominal Exam: non-tender Neurologic Exam: alert, oriented x 3, cooperative, control specialist II-XII nml as tested, normal mood/affect, nml cerebellar function, nml station & gait, sensation nml Skin Exam: normal color, warm, dry SpO2 Interpretation: normal O2 Delivery: Room Air - Course Nursing assessment & vital signs reviewed: Yes - Progress Progress: unchanged Progress Note: 05/14/22 15:07 Medical decision making: I had a long talk with this patient. We will send a prescription for Augmentin 875 orally twice a day for 7 days to his pharmacy via computer. We will also make an appointment with an research clerk so that they can evaluate this young patient with recurrent ear infections. Counseled pt/family regarding: diagnosis, need for follow-up - Departure Departure Disposition: Home Clinical Impression: Right otitis media Condition: Stable Critical Care Time: No Referrals: MORGAN CHAMORRO [Primary Care Provider] - Follow up/PCP as directed Additional Instructions: Take your medication as prescribed. Follow-up with the research clerk appointment that we made for you. Take your Augmentin antibiotic with food Prescriptions: Amox Tr/Potass Clav. 875 mg [Augmentin 875-125 Tablet] 875 mg PO BID #14 tablet
[2022-05-14 14:55] VITALS: BP 158/88; PULSE 83; O2SAT 98
== END 2022-05-14 15:24 | disposition home or self-care (01) ==
LOC: ED 14:47
DX: H66.91 Otitis media, unspecified, right ear (principal); H91.91 Unspecified hearing loss, right ear
CPT/HCPCS: 99281

== ENCOUNTER 2022-05-19 21:11 | Emergency (ER) | payer OTHER ==
--- NOTE | 2022-05-19 21:13 | ERPHSYRPT ---
- History of Present Illness Time Seen by Provider: 05/19/22 21:13 Source: patient, family Exam Limitations: no limitations Physician History: This is a 22-year-old right-handed male who was changing and sharpening knife blade prior to arrival when he accidentally cut the index finger on the left hand. Patient's tetanus status is up-to-date. Timing/Duration: today Quality: painful Severity: mild Location: hands (Left hand index finger laceration) Allergies/Adverse Reactions: trazodone Adverse Reaction (Severe, Verified 02/05/22 21:19) Headache Home Medications: Cetirizine HCl 10 mg PO DAILY 07/31/19 [History] Amoxicillin 875 mg PO 05/19/22 [History] Doxepin HCl 6 mg PO HS PRN 05/19/22 [History] Montelukast Sodium 10 mg [Singulair 10 MG] 10 mg PO DAILY 05/19/22 [History] Hx Tetanus, Diphtheria Vaccination/Date Given: No Hx Influenza Vaccination/Date Given: No Hx Pneumococcal Vaccination/Date Given: No Travel Risk - International Travel Have you traveled outside of the country in past 3 weeks: No - Coronavirus Screening Are you exhibiting any of the following symptoms?: No Close contact with a COVID-19 positive Pt in past 14-21 Days: No - Vaccine Status Have you recieved a Covid-19 vaccination: Yes 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: 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 - Vaccination Dates Date of 2cond Vaccination (if applicable): 2020 - Review of Systems Constitutional: No Symptoms Eyes: No Symptoms Ears, Nose, & Throat: No Symptoms Respiratory: No Symptoms Cardiac: No Symptoms Abdominal/Gastrointestinal: No Symptoms Genitourinary Symptoms: No Symptoms Musculoskeletal: Injury (Left hand index finger laceration) Skin: Other (Laceration left index finger) Neurological: No Symptoms Psychological: No Symptoms Endocrine: No Symptoms Hematologic/Lymphatic: No Symptoms Immunological/Allergic: No Symptoms All Other Systems: Reviewed and Negative - Past Medical History Pertinent Past Medical History: Yes Neurological History: No Pertinent History, Migraines ENT History: No Pertinent History Cardiac History: No Pertinent History Respiratory History: No Pertinent History Endocrine Medical History: No Pertinent History Musculoskeletal History: No Pertinent History GI Medical History: No Pertinent History History: No Pertinent History Psycho-Social History: No Pertinent History Male Reproductive Disorders: No Pertinent History Other Medical History: allergies - Past Surgical History Past Surgical History: Yes Neuro Surgical History: No Pertinent History Cardiac: No Pertinent History Respiratory: No Pertinent History Gastrointestinal: No Pertinent History Genitourinary: No Pertinent History Musculoskeletal: No Pertinent History Male Surgical History: No Pertinent History Other Surgical History: cyst from mouth - Social History Smoking Status: Never smoker Exposure to second hand smoke: Yes Drug Use: none Patient Lives Alone: No Significant Family History: no pertinent family hx - Nursing Vital Signs Nursing Vital Signs: Initial Vital Signs Temperature 97.1 F 05/19/22 21:19 Pulse Rate 79 05/19/22 21:19 Respiratory Rate 20 05/19/22 21:19 Blood Pressure 139/90 05/19/22 21:19 O2 Sat by Pulse Oximetry 100 05/19/22 21:19 Pain Scale Pain Intensity 2 - Physical Exam General Appearance: no apparent distress, alert, anxiety Eye Exam: PERRL/EOMI, eyes nml inspection Ears, Nose, Throat Exam: normal ENT inspection, moist mucous membranes Neck Exam: normal inspection, non-tender, supple, full range of motion Respiratory Exam: airway intact, No chest tenderness, No respiratory distress Gastrointestinal/Abdomen Exam: No tenderness Rectal Exam: not done Extremity Exam: normal range of motion, pelvis stable, lacerations (2 cm laceration left index finger transversely oriented), other (No foreign body, evaluation made in a bloodless field to the base. Neurovascularly intact. Tendon function intact) Neurologic Exam: alert, oriented x 3, cooperative, automation engineering manager II-XII nml as tested, normal mood/affect, nml cerebellar function, nml station & gait, sensation nml Skin Exam: laceration (Laceration as above) Lymphatic Exam: No adenopathy SpO2 Interpretation: normal O2 Delivery: Room Air Procedures - Laceration/Wound Repair Left Finger Time of Procedure: 22:00 Wound Location: Left, hand Wound Length (cm): 2 Wound's Depth, Shape: linear Wound Explored: clean Irrigated: Yes Hibiclens Prep: Yes Anesthesia: 1% Lidocaine (5) Wound Repaired With: sutures Suture Size/Type: 4-0, prolene Number of Sutures: 3 Layer Closure?: No Progress: 05/19/22 22:14 After repair of the laceration the incision was cleaned dried and a thin layer of antibiotic ointment was applied, nonstick gauze followed by tube gauze. - Course Nursing assessment & vital signs reviewed: Yes Ordered Tests: Active Orders 24 hr Category Date Time Status Wound Care STAT Care 05/19/22 21:32 Active Medication Summary Discontinued Medications Generic Name Dose Route Start Last Admin Trade Name Ric PRN Reason Stop Dose Admin Bacitracin Zinc 0.9 each 05/19/22 21:52 05/19/22 21:53 Bacitracin Packet 1 Each Pckt TP 05/19/22 21:53 0.9 each STAT ONE Administration Bacitracin Zinc Confirm 05/19/22 21:53 Bacitracin Packet 1 Each Pckt Administered 05/19/22 21:54 Dose 1 each .ROUTE .STK-MED ONE Lidocaine HCl 5 ml 05/19/22 21:32 05/19/22 21:35 Lidocaine Hcl 1% 20 Ml Mdv 20 Ml Ml IJ 05/19/22 21:33 5 ml STAT ONE Administration Lidocaine HCl Confirm 05/19/22 21:33 Lidocaine Hcl 1% 20 Ml Mdv 20 Ml Ml Administered 05/19/22 21:34 Dose 5 ml .ROUTE .STK-MED ONE - Progress Progress: improved Counseled pt/family regarding: diagnosis, need for follow-up - Departure Departure Disposition: Home Clinical Impression: Laceration of left index finger Condition: Stable Critical Care Time: No Referrals: MORGAN CHAMORRO [Primary Care Provider] - Follow up/PCP as directed Instructions: Laceration Repair With Stitches (DC) Additional Instructions: Keep the bandage in place for 24 hours. After 24 hours may remove the gauze and nonstick pad and wash daily thereafter. After washing blot dry use a hairdryer then apply thin layer of antibiotic ointment of choice followed by a nonstick bandage. Suture removal in 8 to 10 days.
[2022-05-19] MEDS ORDERED: XYLOCAINE 1% HCL 20 ML MDV IJ ONE (21:32)
[2022-05-19] MEDS ORDERED: XYLOCAINE 1% HCL 20 ML MDV ONE (21:33)
[2022-05-19] MEDS ORDERED: BACIGUENT PACKET TP ONE (21:52)
[2022-05-19] MEDS ORDERED: BACIGUENT PACKET ONE (21:53)
[2022-05-19 22:09] VITALS: BP 143/80; PULSE 76; O2SAT 97
== END 2022-05-19 22:22 | disposition home or self-care (01) ==
LOC: ED 21:11
DX: S61.211A Laceration without foreign body of left index finger without damage to nail, initial encounter (principal); W26.0XXA Contact with knife, initial encounter; Z79.899 Other long term (current) drug therapy
CPT/HCPCS: 12001; 96372; 99283; A9270-GY

== ENCOUNTER 2022-05-28 18:33 | Emergency (ER) | payer OTHER ==
--- NOTE | 2022-05-28 18:37 | ERPHSYRPT ---
- History of Present Illness Time Seen by Provider: 05/28/22 18:36 Source: patient Exam Limitations: no limitations Physician History: This is a right handed 22-year-old white male who had a laceration repair of the left index finger approximately 9 days ago. 3 simple interrupted sutures of Prolene remain in place. He has no complaints or issues with the laceration repair site. He is here for suture removal. 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: 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 - Vaccination Dates Date of 2cond Vaccination (if applicable): 2020 - Review of Systems Constitutional: No Symptoms Eyes: No Symptoms Ears, Nose, & Throat: No Symptoms Respiratory: No Symptoms Cardiac: No Symptoms Abdominal/Gastrointestinal: No Symptoms Genitourinary Symptoms: No Symptoms Musculoskeletal: No Symptoms Skin: Other (No issues with the laceration repair site) Neurological: No Symptoms Psychological: No Symptoms Endocrine: No Symptoms Hematologic/Lymphatic: No Symptoms Immunological/Allergic: No Symptoms All Other Systems: Reviewed and Negative - Past Medical History Pertinent Past Medical History: Yes Neurological History: No Pertinent History, Migraines ENT History: No Pertinent History Cardiac History: No Pertinent History Respiratory History: No Pertinent History Endocrine Medical History: No Pertinent History Musculoskeletal History: No Pertinent History GI Medical History: No Pertinent History History: No Pertinent History Psycho-Social History: No Pertinent History Male Reproductive Disorders: No Pertinent History Other Medical History: allergies - Past Surgical History Past Surgical History: Yes Neuro Surgical History: No Pertinent History Cardiac: No Pertinent History Respiratory: No Pertinent History Gastrointestinal: No Pertinent History Genitourinary: No Pertinent History Musculoskeletal: No Pertinent History Male Surgical History: No Pertinent History Other Surgical History: cyst from mouth - Social History Smoking Status: Never smoker Exposure to second hand smoke: Yes Drug Use: none Patient Lives Alone: No Significant Family History: no pertinent family hx - Nursing Vital Signs Nursing Vital Signs: Initial Vital Signs Temperature 97.7 F 05/28/22 18:39 Pulse Rate 80 05/28/22 18:39 Respiratory Rate 16 05/28/22 18:39 Blood Pressure 114/68 05/28/22 18:39 O2 Sat by Pulse Oximetry 98 05/28/22 18:39 Pain Scale Pain Intensity 0 - Physical Exam General Appearance: no apparent distress, alert Eye Exam: PERRL/EOMI, eyes nml inspection Ears, Nose, Throat Exam: normal ENT inspection, moist mucous membranes Neck Exam: normal inspection, non-tender, supple, full range of motion Respiratory Exam: airway intact, No chest tenderness, No respiratory distress Gastrointestinal/Abdomen Exam: No tenderness Rectal Exam: not done Back Exam: normal inspection, normal range of motion, No CVA tenderness, No vertebral tenderness Extremity Exam: normal range of motion, pelvis stable, other (Laceration repair site is healing well. There is no evidence of cellulitis or infection. There is no odor no drainage. There is full function of the tendon. Patient is neurovascularly intact.) Neurologic Exam: alert, oriented x 3, cooperative, kiss machine operator II-XII nml as tested, normal mood/affect, nml cerebellar function, nml station & gait, sensation nml Skin Exam: other (Laceration repair site as above) Lymphatic Exam: No adenopathy SpO2 Interpretation: normal O2 Delivery: Room Air - Course Nursing assessment & vital signs reviewed: Yes - Progress Progress: improved Counseled pt/family regarding: diagnosis - Departure Departure Disposition: Home Clinical Impression: Visit for suture removal Condition: Stable Critical Care Time: No Referrals: MORGAN CHAMORRO [Primary Care Provider] - Follow up/PCP as directed Instructions: Stitches Removal Additional Instructions: Keep site dry until tomorrow evening. Tomorrow evening may begin washing the site daily. Blot dry use a hairdryer to dry the site after washing. Keep the Steri-Strips in place until they fall off on their own.
[2022-05-28 18:45] VITALS: BP 114/68; PULSE 80; O2SAT 98
== END 2022-05-28 19:01 | disposition home or self-care (01) ==
LOC: ED 18:33
DX: Z48.02 Encounter for removal of sutures (principal); Z79.899 Other long term (current) drug therapy
CPT/HCPCS: 99282

== ENCOUNTER 2022-06-26 16:52 | Emergency (ER) | payer OTHER ==
[2022-06-26] MEDS ORDERED: DELTASONE 20 MG PO ONE (17:33)
[2022-06-26] MEDS ORDERED: Zithromax 250 MG TABLET PO ONE (17:33)
--- NOTE | 2022-06-26 17:33 | ERPHSYRPT ---
- History of Present Illness Time Seen by Provider: 06/26/22 17:00 Source: patient Exam Limitations: no limitations Patient Subjective Stated Complaint: Pt states "I have another ear infection I think." Triage Nursing Assessment: PT presented alert and oriented X 3, skin pwd Pt ambulates with an upright steady gait, able to speak in clear full sentences pt in no apaprent respiratory distress. Physician History: This is a 22-year-old white male who has recurrent earaches on both sides. He is now being followed by market research associate. He has a follow-up appointment with him in 1-1/2 weeks. Patient was sensing he may have significant earwax in his right eye and therefore purchased an outpatient mechanical cerumen removal apparatus. He use this and there was significant amount of cerumen removed. However the pain in his right ear is worse. He is concerned he has a recurrent right ear infection. He has no fevers. He has no cough. He has no sore throat. He has been on Augmentin on a few different occasions most recently and therefore we will switch him to a different antibiotic. Timing/Duration: gradual onset Severity: mild ENT Location: ear (R) Prearrival Treatment: over the counter meds Associated Symptoms: ear pain (R) Allergies/Adverse Reactions: trazodone Adverse Reaction (Severe, Verified 05/28/22 18:38) Headache Home Medications: Cetirizine HCl 10 mg PO DAILY 07/31/19 [History] Doxepin HCl 6 mg PO HS PRN 05/19/22 [History] Montelukast Sodium 10 mg [Singulair 10 MG] 10 mg PO DAILY 05/19/22 [History] Hx Tetanus, Diphtheria Vaccination/Date Given: No Hx Influenza Vaccination/Date Given: No Hx Pneumococcal Vaccination/Date Given: No Immunizations Up to Date: Yes Travel Risk - International Travel Have you traveled outside of the country in past 3 weeks: No - Coronavirus Screening Are you exhibiting any of the following symptoms?: No Close contact with a COVID-19 positive Pt in past 14-21 Days: No - Vaccine Status Have you recieved a Covid-19 vaccination: Yes Skip Locator: Moderna - Vaccination Dates Date of 2cond Vaccination (if applicable): 2020 - Review of Systems Constitutional: No Symptoms Eyes: No Symptoms Ears, Nose, & Throat: Ear Pain (Right side) Respiratory: No Symptoms Cardiac: No Symptoms Abdominal/Gastrointestinal: No Symptoms Genitourinary Symptoms: No Symptoms Musculoskeletal: No Symptoms Skin: No Symptoms Neurological: No Symptoms Psychological: No Symptoms Endocrine: No Symptoms Hematologic/Lymphatic: No Symptoms Immunological/Allergic: No Symptoms All Other Systems: Reviewed and Negative - Past Medical History Pertinent Past Medical History: Yes Neurological History: No Pertinent History, Migraines ENT History: No Pertinent History Cardiac History: No Pertinent History Respiratory History: No Pertinent History Endocrine Medical History: No Pertinent History Musculoskeletal History: No Pertinent History GI Medical History: No Pertinent History History: No Pertinent History Psycho-Social History: No Pertinent History Male Reproductive Disorders: No Pertinent History Other Medical History: allergies - Past Surgical History Past Surgical History: Yes Neuro Surgical History: No Pertinent History Cardiac: No Pertinent History Respiratory: No Pertinent History Gastrointestinal: No Pertinent History Genitourinary: No Pertinent History Musculoskeletal: No Pertinent History Male Surgical History: No Pertinent History Other Surgical History: cyst from mouth - Social History Smoking Status: Never smoker Exposure to second hand smoke: Yes Drug Use: none Patient Lives Alone: No Significant Family History: no pertinent family hx - Nursing Vital Signs Nursing Vital Signs: Initial Vital Signs Temperature 97.1 F 06/26/22 17:00 Pulse Rate 72 06/26/22 17:00 Respiratory Rate 20 06/26/22 17:00 Blood Pressure 145/74 06/26/22 17:00 O2 Sat by Pulse Oximetry 95 06/26/22 17:00 Pain Scale Pain Intensity 6 - Physical Exam General Appearance: no apparent distress, alert, anxiety Eye Exam: bilateral eye: normal inspection, PERRL, EOMI Ear Exam: right ear: swelling (And associated fibrinous exudate in the right ear canal), tenderness, TM dull, left ear: canal normal, TM normal, bilateral ear: auricle normal Nasal Exam: normal inspection Throat Exam: normal, pharynx normal Neck Exam: normal inspection, non-tender, supple, full range of motion Cardiovascular/Respiratory Exam: chest non-tender, no respiratory distress Abdominal Exam: non-tender Neurologic Exam: alert, oriented x 3, cooperative, note teller II-XII nml as tested Skin Exam: normal color, warm, dry SpO2 Interpretation: normal SpO2: 95 O2 Delivery: Room Air - Course Nursing assessment & vital signs reviewed: Yes - Progress Progress: unchanged Counseled pt/family regarding: diagnosis, need for follow-up - Departure Departure Disposition: Home Clinical Impression: Right otitis media Condition: Stable Critical Care Time: No Referrals: MORGAN CHAMORRO [Primary Care Provider] - Follow up/PCP as directed Additional Instructions: Use Tylenol to control your right earache. Call your market research associate on Tuesday to see about moving your appointment to an earlier date. Take your antibiotics and steroids as prescribed Prescriptions: Prednisone 10 mg [Deltasone 10 mg] 10 mg PO TID #12 tablet Azithromycin 250 mg [Zithromax 250 MG TABLET] 250 mg PO ZPACK #6 tablet
[2022-06-26] MEDS ORDERED: Zithromax 250 MG TABLET ONE (17:35)
[2022-06-26] MEDS ORDERED: DELTASONE 20 MG ONE (17:35)
[2022-06-26 17:44] VITALS: BP 139/89; PULSE 76; O2SAT 98
== END 2022-06-26 17:45 | disposition home or self-care (01) ==
LOC: ED 16:52
DX: H66.91 Otitis media, unspecified, right ear (principal); H92.01 Otalgia, right ear; Z79.899 Other long term (current) drug therapy; Z79.52 Long term (current) use of systemic steroids
CPT/HCPCS: 99282; A9270-GY

== ENCOUNTER 2023-08-29 17:03 | Emergency (ER) | payer OTHER ==
[2023-08-29 19:35] VITALS: RESP 17; TEMP 96.6; O2SAT 97
--- NOTE | 2023-08-29 19:44 | ERPHSYRPT ---
- History of Present Illness Time Seen by Provider: 08/29/23 19:44 Source: patient Exam Limitations: no limitations Patient Subjective Stated Complaint: rt ear pain Triage Nursing Assessment: pt ambulated into ER without diff. Pt c/o rt ear pain x1 week which got better but pain returned again last night. Rt ear is red, painful to pt. Pt c/o yellow drainage from ear and difficulty hearing. Physician History: This is a 23-year-old white male patient who has recurrent right ear infections. This 1 recurred 1 week ago and seemed to improve but then came back again yesterday and today the pain is worse than usual. Patient has seen ENT in the past. He will be following up as an outpatient with them. Timing/Duration: gradual onset Severity: moderate ENT Location: ear (R) Prearrival Treatment: over the counter meds Modifying Factors: Improves With: nothing Associated Symptoms: ear pain (R), ear drainage (Right ear) Allergies/Adverse Reactions: trazodone Adverse Reaction (Severe, Verified 08/29/23 19:43) Headache Home Medications: Cetirizine HCl 10 mg PO DAILY 07/31/19 [History] Doxepin HCl 6 mg PO HS PRN 05/19/22 [History] Montelukast Sodium 10 mg [Singulair 10 MG] 10 mg PO DAILY 05/19/22 [History] Fluticasone Propionate [Flovent Diskus] 50 mcg IH DAILY 08/29/23 [History] Hx Tetanus, Diphtheria Vaccination/Date Given: Yes Hx Influenza Vaccination/Date Given: No Hx Pneumococcal Vaccination/Date Given: No Immunizations Up to Date: Yes Travel Risk - International Travel Have you traveled outside of the country in past 3 weeks: No - Coronavirus Screening Are you exhibiting any of the following symptoms?: No Close contact with a COVID-19 positive Pt in past 14-21 Days: No - Vaccine Status Have you recieved a Covid-19 vaccination: Yes Front Sight Attacher: Unknown - Vaccination Dates Date of 2cond Vaccination (if applicable): . Dates if Unknown: . - Review of Systems Constitutional: No Symptoms Eyes: No Symptoms Ears, Nose, & Throat: Ear Pain (Right ear), Ear Discharge (Right ear) Respiratory: No Symptoms Cardiac: No Symptoms Abdominal/Gastrointestinal: No Symptoms Genitourinary Symptoms: No Symptoms Musculoskeletal: No Symptoms Skin: No Symptoms Neurological: No Symptoms Psychological: No Symptoms Endocrine: No Symptoms Hematologic/Lymphatic: No Symptoms Immunological/Allergic: No Symptoms All Other Systems: Reviewed and Negative - Past Medical History Pertinent Past Medical History: Yes Neurological History: Migraines ENT History: No Pertinent History Cardiac History: No Pertinent History Respiratory History: No Pertinent History Endocrine Medical History: No Pertinent History Musculoskeletal History: No Pertinent History GI Medical History: Gallbladder Disease History: No Pertinent History Psycho-Social History: No Pertinent History Male Reproductive Disorders: No Pertinent History Other Medical History: allergies - Past Surgical History Past Surgical History: Yes Neuro Surgical History: No Pertinent History Cardiac: No Pertinent History Respiratory: No Pertinent History Gastrointestinal: Cholecystectomy Genitourinary: No Pertinent History Musculoskeletal: No Pertinent History Male Surgical History: No Pertinent History Other Surgical History: cyst from mouth - Social History Smoking Status: Never smoker Exposure to second hand smoke: Yes Drug Use: none Patient Lives Alone: No Significant Family History: no pertinent family hx - Nursing Vital Signs Nursing Vital Signs: Initial Vital Signs Temperature 96.6 F 08/29/23 19:34 Pulse Rate 87 08/29/23 19:34 Respiratory Rate 17 08/29/23 19:34 Blood Pressure 137/90 08/29/23 19:34 O2 Sat by Pulse Oximetry 97 08/29/23 19:34 Pain Scale Pain Intensity 3 - Physical Exam General Appearance: no apparent distress, alert Eye Exam: bilateral eye: normal inspection, PERRL, EOMI Ear Exam: right ear: erythema, TM red, left ear: canal normal, TM normal, bilateral ear: auricle normal Nasal Exam: normal inspection Throat Exam: normal, pharynx normal, moist mucus membranes Neck Exam: normal inspection, non-tender, supple, full range of motion, trachea midline Cardiovascular/Respiratory Exam: chest non-tender, no respiratory distress Abdominal Exam: non-tender Neurologic Exam: alert, oriented x 3, cooperative, retail merchandiser II-XII nml as tested, normal mood/affect, nml cerebellar function, nml station & gait, sensation nml Skin Exam: normal color, warm, dry SpO2 Interpretation: normal SpO2: 97 O2 Delivery: Room Air - Course Nursing assessment & vital signs reviewed: Yes - Progress Progress: unchanged, pain not gone completely Progress Note: 08/29/23 20:13 This patient's medical issue is 1 of low complexity. No laboratory radiographic studies are necessary in this patient. Counseled pt/family regarding: diagnosis, need for follow-up Medical Desision Making - Diagnostic Testing Diagnostic test were ordered, analyzed, and reviewed by me: No - Risk of complications The pt has a mod risk of morbidity or mortality based on: Need for prescription drug management - Departure Departure Disposition: Home Clinical Impression: Right otitis media Condition: Stable Critical Care Time: No Additional Instructions: Take your medications as prescribed. Call your scientific research associate to make arrangements for a follow-up appointment for further evaluation management for the next 3 to 5 days. Prescriptions: Prednisone 10 mg [Deltasone 10 mg] 10 mg PO TID #12 tablet Azithromycin 250 mg [Zithromax 250 MG TABLET] 250 mg PO ZPACK #6 tablet
[2023-08-29] MEDS ORDERED: NORCO 5/325 MG PO ONE (20:09)
[2023-08-29] MEDS ORDERED: MOTRIN 600 MG PO ONE (20:09)
[2023-08-29] MEDS ORDERED: KEFLEX 500 MG PO ONE (20:09)
[2023-08-29] MEDS ORDERED: KEFLEX 500 MG ONE (20:15)
[2023-08-29] MEDS ORDERED: MOTRIN 600 MG ONE (20:15)
[2023-08-29] MEDS ORDERED: NORCO 5/325 MG ONE (20:15)
[2023-08-29 20:23] VITALS: BP 128/90; PULSE 90
== END 2023-08-29 20:31 | disposition home or self-care (01) ==
LOC: ED 17:03
DX: H66.91 Otitis media, unspecified, right ear (principal); H92.01 Otalgia, right ear; Z79.52 Long term (current) use of systemic steroids; Z79.899 Other long term (current) drug therapy
CPT/HCPCS: 99282; A9270-GY